=== PATIENT | male | born 2005 | race Caucasian/White ===

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

== ENCOUNTER 2023-02-25 11:09 | Emergency (ER) | payer OTHER, SELFPAY ==
[2023-02-25 11:35] VITALS: BP 125/91; PULSE 64; RESP 18; TEMP 36.8; O2SAT 100
[2023-02-25] MEDS: KETOROLAC (*BKC) 60 MG/2 ML VIAL IM (11:56)
--- NOTE | 2023-02-25 12:01 | ED.GENADULT ---
HPI - General Adult General Chief complaint: Back Pain/Injury Stated complaint: lower back pain Source: patient Mode of arrival: ambulatory Limitations: no limitations History of Present Illness HPI narrative: Patient presents for evaluation of left lower back pain. Symptom onset 3 days ago. He indicates he 1st noticed symptoms when he was getting into bed after working. He cannot identify any precipitating injury. No history of similar symptoms in the past. Pain is constant, sharp, rated 6/10 in severity. No radicular component. No urinary symptoms. Certain movements make his pain worse. He tried [id number] agents with minimal improvement in his pain thereafter. Denies any saddle anesthesia, bladder/bowel incontinence. Related Data Home Medications Medication Instructions Recorded Confirmed metoprolol tartrate 25 mg tablet 12.5 mg PO DAILY 03/10/21 03/10/21 Allergies Allergy/AdvReac Type Severity Reaction Status Date / Time No Known Allergies Allergy Verified 03/10/21 16:21 Review of Systems Review of Systems: CONSTITUTIONAL: Denies fever, chills, or sweats. EYES: Denies visual changes, redness, or discharge. ENT: Denies rhinorrhea, congestion, sore throat, or otalgia. CARDIOVASCULAR: Denies chest pain, palpitations, or edema. RESPIRATORY: Denies cough or dyspnea. GASTROINTESTINAL: Denies abdominal pain, nausea, vomiting, or diarrhea. GENITOURINARY: Denies dysuria or hematuria. SKIN: Denies rash or itching. MUSCULOSKELETAL:Reports left lower back pain. Denies joint pain, or myalgia. NEUROLOGIC: Denies headache, numbness, dizziness, or weakness. PSYCHIATRIC: Denies anxiety or depression. [facility] Past Medical History Medical History Eye problems Marfan syndrome Surgical History Surgical History History of eye surgery bilateral History of hernia surgery Left inguinal x2 Family History Family History Mother Asthma Father Smoker in home Marfan syndrome Social History Social History Smoking status: Never smoker Tobacco type: cigarettes Second hand tobacco smoke exposure: Yes (father) Alcohol intake: never Substance use: never Substance use type: does not use Living arrangements: with family Occupation/Education: student Gender identity (if verbalized by the patient): Male Exam Narrative: GENERAL: Well-appearing, well-nourished, and in no acute distress. HEAD: Normocephalic, atraumatic. EYES: PERRLA and EOMI. ENT: Nares clear, no rhinorrhea or epistaxis. Mucous membranes moist. Oropharynx without tonsillar hypertrophy exudate or other lesions. Bilateral TMs pearly hughes nonbulging NECK: Supple. No adenopathy or masses. No carotid bruits or JVD CHEST: Clear to auscultation. No respiratory distress. No wheezes rales or rhonchi HEART: Regular rate and rhythm. No murmur heard. Normal peripheral pulses. ABDOMEN: Soft, nontender, nondistended, normal active bowel sounds. EXTREMITIES: Normal range of motion. No edema. BACK: Mild tenderness in left paraspinous muscles of the lumbar spine. No midline bony spinal tenderness. No CVA tenderness SKIN: Warm, dry, no rash. NEURO: No focal deficits. Alert and oriented x3. PSYCH: Normal mood and affect. Course Course Emergency Course: This is a 17-year-old male who presented for evaluation of left lower back pain. Initial differentials were urinary tract infection versus kidney stone versus musculoskeletal pain. Urinalysis was obtained and no evidence of infection. There was no blood present to suggest kidney stone but I did advise patient that lack of blood does not rule out possibility of stone. He does not have any abdominal discomfort and denies any urinary symptoms. Zachary
== END 2023-02-25 12:36 | disposition home or self-care (01) ==
PROVIDERS: Emergency Provider Nurse Practitioner
DX: M54.50 Low back pain, unspecified (principal); Q87.40 Marfan syndrome, unspecified
CPT/HCPCS: 81003; 96372; 99213; G0463; J1885

== ENCOUNTER 2023-06-06 16:51 | Emergency (ER) | payer OTHER, SELFPAY ==
--- NOTE | ~2023-06-06 | XR_ITS ---
EXAMINATION: XR wrist LT min 3V DATE: 06/06/2023 17:09 INDICATION: Left wrist injury and pain. TECHNIQUE: 4 views of left wrist were obtained. COMPARISON: None. FINDINGS: Bone alignment is normal. No fracture. Joint spaces are normal. IMPRESSION: 1. Normal left wrist. Reviewed, dictated and finalized at location E. OL MANAGER IMPRESSION: 1. Normal left wrist.
[2023-06-06 17:01] VITALS: BP 129/72; PULSE 80; RESP 20; TEMP 36.7; O2SAT 98
--- NOTE | 2023-06-06 17:29 | ED.UPPEXIN ---
HPI - Extremity Injury (Upper) General Chief Complaint: Extremity Injury, Upper Stated Complaint: Fall Injury/Left Arm Time Seen by Provider: 06/06/23 17:25 Source: patient and RN notes reviewed Mode of arrival: ambulatory Limitations: no limitations History of Present Illness HPI narrative: 17-year-old male presents concern for left wrist pain. Reports today he slipped on the ice and fell. He reports he has used an Yasir wrap. Reports that is tender to touch. He denies swelling, bruising, open skin. MD complaint: injury to: left and wrist Related Data Home Medications Medication Instructions Recorded Confirmed metoprolol tartrate 25 mg tablet 12.5 mg PO DAILY 03/10/21 03/10/21 losartan 25 mg tablet mg 06/06/23 Allergies Allergy/AdvReac Type Severity Reaction Status Date / Time No Known Allergies Allergy Verified 03/10/21 16:21 Review of Systems Review of Systems: CONSTITUTIONAL: Denies malaise, chills, sweats, or fever. SKIN: Denies rash or itching, open skin, laceration, abrasion, redness, warmth, swelling. MUSCULOSKELETAL: Reports left wrist pain NEUROLOGIC: Denies numbness, weakness All systems reviewed & are unremarkable except as noted in HPI and below PMFSH Past Medical History Medical History Eye problems Marfan syndrome Surgical History Surgical History History of eye surgery bilateral History of hernia surgery Left inguinal x2 Family History Family History Mother Asthma Father Smoker in home Marfan syndrome Social History Social History Smoking status: Never smoker Tobacco type: cigarettes Second hand tobacco smoke exposure: Yes (father) Alcohol intake: never Substance use: never Substance use type: does not use Living arrangements: with family Occupation/Education: student Gender identity (if verbalized by the patient): Male Comments At time of signature, agree with nursing past medical, surgical, social and family history. There is no relevant family history pertinent to the presenting complaint Exam Narrative: GENERAL: Well-appearing, well-nourished, and in no acute distress. HEAD: Normocephalic EYES: PERRLA, conjunctivae clear NECK: Supple. CHEST: Speaks in full sentences. No respiratory distress. HEART: Regular rate and rhythm. Normal and equal peripheral pulses. EXTREMITIES: Left wrist, hand and digits of hand have normal strength and sensation. 5/5 strength with digit flexion, extension. Range of motion normal. No clubbing, cyanosis, or edema noted. No tenderness. Skin intact. Normal digital cascade with flexion of fingers, median, ulnar and radial nerve intact. Normal sensation of each side of finger. Can perform 'okay' sign, 'cross over finger test of index and middle fingers' and 'thumbs up' sign. No scissoring. Normal thumb opposition. Good capillary refill and radial pulse. Distal capillary refill less than 3 seconds. SKIN: Warn, dry, intact, pink. No rash NEURO: Alert and oriented x3. PSYCH: Normal mood and affect Course Course Emergency Course: Patient is aware of diagnosis, understands and agrees to treatment plan. Anticipatory guidance given. Patient agrees to follow-up as directed and is aware of reasons to seek care at the emergency department. Portions of this record may have been created with voice recognition software Level of Care: Express Care Visit Vital Signs Vital signs: Vital Signs Temperature 98.1 F 06/06/23 17:01 Pulse Rate 80 06/06/23 17:01 Respiratory Rate 20 06/06/23 17:01 Blood Pressure 129/72 06/06/23 17:01 Pulse Oximetry 98 06/06/23 17:01 Oxygen Delivery Room Air 06/06/23 17:01 Temperature 98.1 F 06/06/23 17:01 Pulse Rate 80 06/06/23 1
== END 2023-06-06 17:38 | disposition home or self-care (01) ==
PROVIDERS: Emergency Provider Nurse Practitioner
DX: S63.502A Unspecified sprain of left wrist, 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 (principal); S66.912A Strain of unspecified muscle, fascia and tendon at wrist and hand level, left hand, 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; W00.0XXA Fall on same level due to ice and snow, 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; Q87.40 Marfan syndrome, unspecified
CPT/HCPCS: 73110; 99213; G0463

== ENCOUNTER 2023-07-15 08:39 | Emergency (ER) | payer OTHER, SELFPAY ==
[2023-07-15 08:42] VITALS: BP 117/93; PULSE 110; RESP 20; TEMP 37.1; O2SAT 98
--- NOTE | 2023-07-15 08:48 | ED.URI ---
HPI - URI/Sore Throat General Chief Complaint: Upper Respiratory Infection Stated Complaint: throat/congestion/no taste Time Seen by Provider: 07/15/23 08:48 Source: patient, RN notes reviewed and old records reviewed Mode of arrival: ambulatory Limitations: no limitations History of Present Illness HPI Narrative: 17 year old male presents to express care with complaints of sore throat, stuffy nose, cough some dizziness and body aches for 2 day duration. Patient has not taken any. [id number] medications for his symptoms today but has been taking some ibuprofen. Patient reports fever yesterday unsure how high but did have some chills and sweats. Patient denies any shortness of breath.no nausea or vomiting or any diarrhea. Patient does have a history of Marfan's syndrome and is followed by qm consultant at [facility]. elicited complaint: cough and sore throat Pertinent past history: other (Strep throat, Marfan syndrome) Onset (ago): day(s) (2) Pain scale (0-10): 5 Able to tolerate fluids by mouth: Yes Treatments prior to arrival: none Related Data Home Medications Medication Instructions Recorded Confirmed metoprolol tartrate 25 mg tablet 12.5 mg PO DAILY 03/10/21 03/10/21 losartan 25 mg tablet mg 06/06/23 Allergies Allergy/AdvReac Type Severity Reaction Status Date / Time No Known Allergies Allergy Verified 03/10/21 16:21 Review of Systems Review of Systems: CONSTITUTIONAL: Reports malaise, chills, sweats, or fever. EYES: Denies visual changes, redness, or discharge. ENT: Reports rhinorrhea, congestion, sinus pain, no otalgia and positive sore throat. CARDIOVASCULAR: Denies chest pain, palpitations, or edema. RESPIRATORY: Reports cough.? Denies dyspnea. GASTROINTESTINAL: Denies abdominal pain, nausea, vomiting, diarrhea SKIN: Denies rash or itching. MUSCULOSKELETAL: Reports myalgia. NEUROLOGIC: Denies headache. All systems reviewed & are unremarkable except as noted in HPI and below PMFSH Past Medical History Medical History (Updated 07/15/23 @ 09:04 by Jade Moe NP) Eye problems Hypertension Marfan syndrome Surgical History Surgical History History of eye surgery bilateral History of hernia surgery Left inguinal x2 Family History Family History Mother Asthma Father Smoker in home Marfan syndrome Social History Social History Smoking status: Never smoker Tobacco type: cigarettes Second hand tobacco smoke exposure: Yes (father) Alcohol intake: never Substance use: never Substance use type: does not use Living arrangements: with family Occupation/Education: student Gender identity (if verbalized by the patient): Male Comments At time of signature, agree with nursing past medical, surgical, social and family history. There is no relevant family history pertinent to the presenting complaint Exam Narrative: GENERAL: Well-appearing, well-nourished, and in no acute distress. HEAD: Normocephalic EYES: PERRLA, conjunctivae clear ENT: Nares clear, turbinates edematous and erythematous, clear discharge. Mucous membranes moist. TM pearly hughes with dull light reflex bilaterally; no tragal tenderness. Oropharynx erythematous without lesions. Tonsils not enlarged and without exudate, no drooling, no hoarseness, no trismus, uvula midline. NECK: Supple. No lymphadenopathy CHEST: Clear to auscultation, breath sounds equal. No wheezing, rhonchi, rales, or stridor. No respiratory distress, speaks in full sentences.[id number]% on room air HEART: Regular rate and rhythm. No murmur heard. SKIN: Warm, dry, no rash. NEURO: Alert and oriented x3. PSYCH: Normal mood and affect Course Course Emergency Course: Patient is aware of diagnosis, understands and ag
== END 2023-07-15 09:17 | disposition home or self-care (01) ==
PROVIDERS: Emergency Provider Registered Nurse
DX: U07.1 COVID-19 (principal); I10 Essential (primary) hypertension; Q87.40 Marfan syndrome, unspecified
CPT/HCPCS: 87081; 87426; 87804; 87880; 99213; G0463

== ENCOUNTER 2025-02-24 15:36 | Emergency (ER) | payer OTHER, SELFPAY ==
--- NOTE | ~2025-02-24 | XR_ITS ---
Clinical history:Swelling for 2 weeks. ACL repair EXAM:X-ray knee right minimum 4 views TECHNIQUE:5 images of the right knee were obtained Comparisons:None available FINDINGS: Evidence of previous ACL repair. Mild tricompartment joint space narrowing. Soft tissue swelling about the right knee. Small to moderate-sized suprapatellar effusion. Indeterminant 1.5 cm lucency in the lateral femoral condyle. In addition, there are a few less than 1 cm lucencies in the proximal tibia. IMPRESSION: 1. No fracture. No dislocation. 2. Mild tricompartment joint space narrowing. 3. Soft tissue swelling about the right knee. 4. Small to moderate-sized suprapatellar effusion. 5. Indeterminant 1.5 cm lucency in the lateral femoral condyle. In addition, there are a few less than 1 cm lucencies in the proximal tibia. Consider an MRI of the right knee with and without contrast for further assessment. Reviewed, dictated and finalized at location Q. IMPRESSION: 1. No fracture. No dislocation. 2. Mild tricompartment joint space narrowing. 3. Soft tissue swelling about the right knee. 4. Small to moderate-sized suprapatellar effusion. 5. Indeterminant 1.5 cm lucency in the lateral femoral condyle. In addition, th ere are a few less than 1 cm lucencies in the proximal tibia. Consider an MRI o f the right knee with and without contrast for further assessment.
[2025-02-24 15:52] VITALS: BP 131/79; PULSE 61; RESP 16; TEMP 36.4; O2SAT 99
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
--- OUTSIDE RECORDS SUMMARY | 2025-02-24 16:03 | XMS_ITS | Encounter Summary ---
Author Organization [facility] Address [address] [place] [address] Phone Care Team Providers Care Athletic Gear Custodian Name Role Phone Ranjan Torres MD Primary Care Provider [phone] Raúl Arellano Primary Care Provider Unavailabl e Unknown, Notinfile Primary Care Provider Unavail able Raúl Arellano Primary Care Provider UnavailBrittney Land MD Primary Care Provider Raúl Arellano Primary Care Provider UnavailBrittney Land MD Primary Care Provider [phone] Brittney Toth MD Primary Care Provider Raúl Arellano Primary Care Provider UnavailBrittney Land MD Primary Care Provider [phone] Jeronimo Nava MD Primary Care Provider [phone] Encounter Details Date Type Department Care Team (Latest Contact Info) Description 08/01/2006 Orders Only [facility] Scanning, Provider Social History Tobacco Use Types Packs/Day Years Used Date Smoking Tobacco: Never Assessed Sex and Gender Information Value Date Recorded Sex Assigned at Not on file Legal Sex Male 3:47 AM 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 Gender Identity Not on file Sexual Orientation Not on file documented as of this encounter Plan of Treatment Not on file documented as of this encounter Procedures Procedure Name Priority Date/Time Associated Diagnosis Comments SCAN - LABS 08/01/2006 documented in this encounter Results * SCAN - LABS (08/01/2006) us Provider Scanning Final Result documented in this encounter Visit Diagnoses Not on filedocumented in this encounter Care Teams Athletic Gear Custodian Relationship Specialty Start Date End Date Ranjan Torres MD [address] [place] [address] PCP - General 01/01/15 09/14/16 Raúl Arellano [address] [place] [address] PCP - General 09/15/16 11/07/16 Unknown, Notinfile PCP - General 11/08/16 11/08/16 Raúl Arellano [address] [place] [address] PCP - General 11/09/16 12/13/16 Brittney Toth MD [address] [place] [address] PCP - General 12/14/16 03/04/17 Raúl Arellano [address] [place] [address] PCP - General 03/05/17 03/05/17 Brittney Toth MD [address] [place] [address] PCP - General 03/06/17 03/08/17 Brittney Toth MD [address] [place] [address] PCP - General 03/09/17 03/29/17 Raúl Arellano [address] [place] [address] PCP - General 03/30/17 09/14/17 Brittney Toth MD [address] [place] [address] PCP - General 09/15/17 01/18/24 Jeronimo Nava MD [address] [place] [address] PCP - General Emergency Medicine 01/19/24 documented as of this encounter
--- NOTE | 2025-02-24 16:08 | ED_ITS ---
HPI - Extremity Injury (Lower) General Chief Complaint: Extremity Injury, Lower Stated Complaint: right knee swelling Time Seen by Provider: 02/24/25 15:50 Source: patient and RN notes reviewed Mode of arrival: ambulatory Limitations: no limitations History of Present Illness HPI Narrative: 19-year-old male patient with history of Marfan syndrome presents today with swelling of the right knee. He had an ACL repair in October at a [facility] facility in [place] and returned to work 1 month ago after completing physical therapy. Two weeks ago his right knee started swelling and has progressively gotten worse. Denies any new injury or trauma to the knee. Denies numbness or tingling. Currently rates pain 3/10 and has tried ice and a knee sleeve with ibuprofen without improvement. He has not contacted his surgeon. Related Data Home Medications ?Medication ?Instructions ?Recorded ?Confirmed ?Last Taken ?Type metoprolol tartrate 25 mg tablet 12.5 mg PO DAILY 02/2003/10/21 Unknown History losartan 25 mg tablet mg 06/06/23 Unknown History Allergies Allergy/AdvReac Type Severity Reaction Status Date / Time No Known Allergies Allergy Verified 02/24/25 15:50 [facility] Past Medical History Medical History Hypertension Eye problems Marfan syndrome Surgical History Surgical History History of hernia surgery Left inguinal x2 History of eye surgery bilateral Family History Family History Mother Asthma Father Smoker in home Marfan syndrome Social History Social History Smoking status: Never smoker Tobacco type: cigarettes Second hand tobacco smoke exposure: Yes (father) Alcohol intake: never Substance use: never Substance use type: does not use Living arrangements: with family Occupation/Education: student Gender identity (if verbalized by the patient): Male Comments At time of signature, I have reviewed and agree with nursing past medical, surgical, social and family history unless otherwise noted. Please see nursing chart for further information. There is no relevant family history pertinent to the presenting complaint Exam Narrative: GENERAL: Well-appearing, well-nourished, and in no acute distress. HEAD: Normocephalic, atraumatic. EYES: EOMI. No redness or drainage. Conjunctivae normal. ENT: Mucous membranes pink and moist. NECK: Normal AROM. CHEST: No respiratory distress. EXTREMITIES: Right knee: No erythema, ecchymosis noted. Patient has moderate swelling about the knee and mild edema. Range of motion normal. Distal sensation intact. Capillary refill normal. SKIN: Warm, dry, no rash. Capillary refill normal. Normal skin turgor. NEURO: No focal deficits. Alert and oriented x3. Gait steady. PSYCH: Normal affect. No signs of depression or anxiety. Course Course Level of Care: Express Care Visit Vital Signs Vital signs: Vital Signs Temperature 97.5 F L 02/24/25 15:52 Pulse Rate 61 02/24/25 15:52 Respiratory Rate 16 02/24/25 15:52 Blood Pressure 131/79 02/24/25 15:52 Pulse Oximetry 99 02/24/25 15:52 Oxygen Delivery Room Air 02/24/25 15:52 Temperature 97.5 F L 02/24/25 15:52 Pulse Rate 61 02/24/25 15:52 Respiratory Rate 16 02/24/25 15:52 Blood Pressure 131/79 02/24/25 15:52 Pulse Oximetry 99 02/24/25 15:52 Oxygen Delivery Room Air 02/24/25 15:52 Reviewed MDM - Extremity Injury (Lower) MDM Narrative Medical decision making narrative: 19-year-old male patient with history of Marfan syndrome presents today with swelling of the right knee. He had an ACL repair in October at a [facility] facility in [place] and returned to work 1 month ago after completing physical therapy. Two weeks ago his right knee started swelling and has progressively gotten worse. Denies any new injury or trauma to the knee. Has tried a knee sleeve and ice without improvement. Upon exam, patient has some mild to moderate swelling about the knee with normal range of motion. Neurovascularly intact. X-ray shows soft tissue swelling about the knee, mild to moderate suprapatellar effusion. Also shows some indeterminate lucencies. Recommend orthopedic follow-up with patient's surgeon. Patient agrees with plan to call his surgeon tomorrow for follow-up visit. In the meantime, will ice and take OTC medication for discomfort. Vital signs stable. Anticipatory guidance given. Differential Diagnosis Differential diagnosis: Likely other (Knee strain, effusion, postop pain and swelling, osteoarthritis) Imaging Data Radiologist's impression: ITS Impressions Knee X-Ray 02/24/25 16:24 IMPRESSION: 1. No fracture. No dislocation. 2. Mild tricompartment joint space narrowing. 3. Soft tissue swelling about the right knee. 4. Small to moderate-sized suprapatellar effusion. 5. Indeterminant 1.5 cm lucency in the lateral femoral condyle. In addition, there are a few less than 1 cm lucencies in the proximal tibia. Consider an MRI of the right knee with and without contrast for further assessment. Critical Care Time Critical Care Time Critical Care Time: No Discharge Plan Discharge Clinical Impression: Effusion of right knee Patient Disposition: Home Condition: Stable Instructions: Swollen Knee Joint (ED) Additional Instructions: Your x-ray shows swelling about the knee and a collection of fluid in front of the knee joint. Please call your surgeon tomorrow and schedule follow-up visit due to knee swelling. You have been given copy of your x-rays on a disc and copy of your x-ray report. In the meantime, ice and elevate your knee. Take [id number] medication for pain if needed. Patient Language: [place] Prescriptions: No Action losartan 25 mg tablet metoprolol tartrate 25 mg Tablet 12.5 mg PO DAILY Follow-up/Referrals: PHYSICIAN,ELECTRICAL INSTRUMENT REPAIRER [Primary Care Provider, Internal Medicine] Stand Alone Forms: Work/School Release IP Time of Disposition: 16:38
== END 2025-02-24 16:53 | disposition home or self-care (01) ==
PROVIDERS: Emergency Provider Nurse Practitioner
DX: M25.461 Effusion, right knee (principal); I10 Essential (primary) hypertension; Q87.40 Marfan syndrome, unspecified
CPT/HCPCS: 73564; 99213; G0463